=== PATIENT | female | born 1955 | race Caucasian/White ===

== ENCOUNTER → 2018-04-12 | Outpatient (CLI) | payer OTHER | LOC: M WUC 13:59 | DX: M25.562 Pain in left knee (principal) | CPT/HCPCS: 73564 ==

== ENCOUNTER 2019-04-23 17:41 | Emergency (ER) | payer OTHER ==
[~2019-04-23] VITALS: Ht 160 cm; Wt 69.8 kg
[2019-04-23] MEDS ORDERED: RISE1TAB8 (17:47)
[2019-04-23] MEDS ORDERED: SYNT112T2 (17:47)
[2019-04-23] MEDS ORDERED: NAPROXEN 250 MG TAB PO ONE (20:30)
[2019-04-23] MEDS ORDERED: NAPR-837 PO (21:27)
[2019-04-23] MEDS ORDERED: CYCL10TA PO (21:27)
[2019-04-23 21:40] VITALS: BP 138/65
[2019-04-23] MEDS ORDERED: CYCLOBENZAPRINE 10 MG TAB PO ONE (21:45)
== END 2019-04-23 22:11 | disposition home or self-care (01) ==
LOC: M ED 17:41
DX: S39.012A Strain of muscle, fascia and tendon of lower back, initial encounter (principal); Z79.899 Other long term (current) drug therapy

== ENCOUNTER → 2020-10-15 | Outpatient (CLI) | payer OTHER ==
[~2020-10-15] MED LIST: CYCL-707 PO; NAPR-837 PO; RISE1TAB8; SYNT112T2
--- NOTE | 2020-10-15 10:28 | DEXAMM ---
INDICATION: M81.0 AGE RELATED OSTEOPOROSIS. COMPARISON: 04/28/2018, 01/25/2001. TECHNIQUE: Bone density was measured using dual-energy x-ray absorptiometry (DEXA). FINDINGS: AP SPINE L1-L4 BMD 0.905 g/cm2 Young Adult T-Score -2.3 Age Matched Z-Score -0.7. LT FEMUR, TOTAL BMD 0.785 g/cm2 Young Adult T-Score -1.8 Age Matched Z-Score -0.5. LT NECK BMD 0.739 g/cm2 Young Adult T-Score -2.2 Age Matched Z-Score -0.6. RT FEMUR, TOTAL BMD 0.795 g/cm2 Young Adult T-Score -1.7 Age Matched Z-Score -0.4. RT NECK BMD 0.715 g/cm2 Young Adult T-Score -2.3 Age Matched Z-Score -0.8. IMPRESSION: There is low bone density of the spine. There is low bone density of the left hip. There is low bone density of the right hip. The density of the spine has decreased 18.8% since the initial exam on 01/25/2001. The density of the spine increased 3.0% since most recent exam on 04/28/2018. The density of the left hip has decreased 11.8% since initial exam on 02/25/2006. The density of the left hip has decreased 3.3% since most recent exam on 04/28/2018. The density of the right hip has decreased 8.2% since the initial exam on 02/25/2006. The density of the right hip has decreased 1.4% since the most recent exam on 04/28/2018. FOLLOW-UP: Recommendation for the next bone density exam: 2 years. <Electronically signed by Dustin Ramos > 10/15/20 [id number]
== END ==
LOC: M WHC 09:05
PROVIDERS: ATTEND Family Medicine
DX: M81.0 Age-related osteoporosis without current pathological fracture (principal)

== ENCOUNTER → 2020-10-27 | Outpatient (CLI) | payer OTHER ==
--- NOTE | 2020-10-27 16:07 | REP ---
INDICATION: LOW BACK PAIN COMPARISON: None. TECHNIQUE: AP, lateral, flexion/extension, bilateral oblique, and coned-down views. FINDINGS: Age-related osteopenia is appreciated. Lateral views suggest grade 1 anterolisthesis at the L5-S1 level with hypertrophic facet changes, endplate sclerosis, and disc space narrowing. Remainder of the examination is relatively age-appropriate. IMPRESSION: Chronic appearing degenerative changes as described above at L5-S1. Underlying spondylolysis cannot be excluded. <Electronically signed by Anibal Iyer > 10/27/20 [id number]
--- NOTE | 2020-10-27 16:10 | REP ---
INDICATION: TROCHANTERIC BURSITIS. COMPARISON: None TECHNIQUE: AP and frog-lateral views FINDINGS: Joint space is symmetric and well maintained. The femoral head is spherical in shape. There is no acute fracture, dislocation, or subluxation. IMPRESSION: Within normal limits. If trochanteric tendono bursitis is of clinical concern then I would recommend an MRI. <Electronically signed by Dinesh Santillan > 10/27/20 2029
== END ==
LOC: M WUC 15:10
PROVIDERS: ATTEND Family Medicine
DX: M70.61 Trochanteric bursitis, right hip (principal); M85.88 Other specified disorders of bone density and structure, other site

== ENCOUNTER 2021-07-08 17:50 | Emergency (ER) | payer OTHER ==
[~2021-07-08] VITALS: Ht 160 cm; Wt 66.4 kg
[2021-07-08] MEDS ORDERED: VITA200016 (17:59)
[2021-07-08] MEDS ORDERED: NITROGLYCERIN 0.4 MG SUBL TABLET SL PRN (18:15)
[2021-07-08 18:25] LABS: BASO # 0.1 10^3/uL (0.0-0.2); BASO % 0.6 % (0.0-1.0); EOS # 0.3 10^3/uL (0.0-0.5); EOS % 3.5 % (0.0-3.0); HEMATOCRIT 39.3 % (36.0-47.0); HEMOGLOBIN 12.1 g/dl (12.0-15.5); LYMPH # 3.1 10^3/uL (1.5-5.0); LYMPH % 34.6 % (24.0-44.0); MEAN CORPUSCULAR HEMOGLOBIN 26.2 pg (27.0-33.0); MEAN CORPUSCULAR HGB CONC 30.8 g/dl (32.0-36.5); MEAN CORPUSCULAR VOLUME 85.1 fl (80.0-96.0); MONO # 0.7 10^3/uL (0.0-0.8); MONO % 7.8 % (2.0-8.0); NEUTROPHILS # 4.7 10^3/uL (1.5-8.5); PLATELET COUNT, AUTOMATED 290 10^3/uL (150-450); RED BLOOD COUNT 4.62 10^6/uL (4.00-5.40); WHITE BLOOD COUNT 8.9 10^3/uL (4.0-10.0)
[2021-07-08] MEDS ORDERED: ACETAMINOPHEN 500 MG TAB PO ONE (18:35)
[2021-07-08 18:52] LABS: CK-MB VALUE MASS < 1.0 NG/ML (<3.6); CPK CREATINE PHOSPHOKINASE 66 U/L (26-192); MB/CK RELATIVE INDEX 1.52 (< OR =4)
[2021-07-08 19:12] LABS: ALBUMIN 4.4 GM/DL (3.2-5.2); ALT/SGPT 22 U/L (12-78); BILIRUBIN,DIRECT < 0.1 MG/DL (0.0-0.2); BILIRUBIN,TOTAL 0.2 MG/DL (0.2-1.0); BLOOD UREA NITROGEN 15 MG/DL (7-18); CALCIUM LEVEL 10.4 MG/DL (8.8-10.2); CARBON DIOXIDE LEVEL 25 MEQ/L (21-32); CHLORIDE LEVEL 109 MEQ/L (98-107); CREATININE FOR GFR 0.78 MG/DL (0.55-1.30); GLOMERULAR FILTRATION RATE > 60.0 (>45); GLUCOSE, FASTING 89 MG/DL (70-100); LIPASE 180 U/L (73-393); NT-PRO BNP 143 PG/ML (<125); SODIUM LEVEL 141 MEQ/L (136-145); THYROID STIMULATING HORMONE 0.643 uIU/ML (0.358-3.740); TOTAL PROTEIN 8.1 GM/DL (6.4-8.2)
[2021-07-08 19:56] LABS: CK-MB VALUE MASS < 1.0 NG/ML (<3.6); CPK CREATINE PHOSPHOKINASE 56 U/L (26-192); MB/CK RELATIVE INDEX 1.79 (< OR =4)
[2021-07-08 20:40] VITALS: BP 138/75
== END 2021-07-08 20:56 | disposition home or self-care (01) ==
LOC: M ED 17:50
DX: R07.89 Other chest pain (principal); E07.9 Disorder of thyroid, unspecified; Z79.890 Hormone replacement therapy

== ENCOUNTER → 2021-07-20 | Outpatient (CLI) | payer OTHER ==
[~2021-07-20] MED LIST changes: +VITA200016
== END ==
LOC: M CARPUL 14:39
PROVIDERS: ATTEND Nurse Practitioner Adult Health
DX: R07.9 Chest pain, unspecified (principal)

== ENCOUNTER → 2022-04-05 | Outpatient (REF) | payer OTHER ==
[~2022-04-05] MED LIST changes: -RISE1TAB8; +RISE1TAB8 PO; +SYNT112T2 PO; +SYNT125T PO; +VITA100T29 PO; +VITA200016 PO; +VITA500075 PO
[2022-04-05 19:08] LABS: INFLUENZA A AMPLIFICATION POSITIVE (NEGATIVE); INFLUENZA B AMPLIFICATION NEGATIVE (NEGATIVE)
== END ==
LOC: M LAB REF 17:21
PROVIDERS: ATTEND Nurse Practitioner Adult Health
DX: R50.9 Fever, unspecified (principal)

== ENCOUNTER 2022-09-15 08:14 | Day surgery (SDC) | payer OTHER ==
[~2022-09-15] VITALS: Ht 160 cm; Wt 63.8 kg
[~2022-09-15 08:14] MED LIST changes: +D3 S1CAP3 PO; +EQL50TAB2 PO; +FERR325T19 PO; +LEVO88TA3 PO; +NS 1,000 ML IV ONE; +SYNT100T PO
[2022-09-15 10:49] VITALS: BP 110/51
== END 2022-09-15 10:50 | disposition home or self-care (01) ==
LOC: M OPP 08:14
PROVIDERS: ATTEND Internal Medicine Gastroenterology
DX: Z12.11 Encounter for screening for malignant neoplasm of colon (principal); Z80.0 Family history of malignant neoplasm of digestive organs; K57.30 Diverticulosis of large intestine without perforation or abscess without bleeding; K64.0 First degree hemorrhoids; K44.9 Diaphragmatic hernia without obstruction or gangrene; K29.70 Gastritis, unspecified, without bleeding; D50.9 Iron deficiency anemia, unspecified; Z79.1 Long term (current) use of non-steroidal anti-inflammatories (NSAID); Z79.890 Hormone replacement therapy; Z79.899 Other long term (current) drug therapy

== ENCOUNTER → 2022-09-23 | Outpatient (CLI) | payer OTHER ==
[~2022-09-23] MED LIST changes: -NS 1,000 ML IV ONE
== END ==
LOC: M WHC 08:56
PROVIDERS: ATTEND Family Medicine
DX: E03.9 Hypothyroidism, unspecified (principal); E04.9 Nontoxic goiter, unspecified

== ENCOUNTER → 2022-10-07 | Outpatient (CLI) | payer OTHER | LOC: M WUC 12:27 | PROVIDERS: ATTEND Physician Assistant | DX: M79.644 Pain in right finger(s) (principal) ==

== ENCOUNTER → 2023-12-27 | Outpatient (CLI) | payer MEDICARE, OTHER | LOC: M WHC 13:08 | PROVIDERS: ATTEND Family Medicine | DX: M85.851 Other specified disorders of bone density and structure, right thigh (principal); M85.852 Other specified disorders of bone density and structure, left thigh ==